=== PATIENT | female | born 1965 | race Caucasian/White ===

== ENCOUNTER 2017-02-09 15:47 | Emergency (ER) | payer MEDICARE, MEDICAID ==
[~2017-02-09] VITALS: Ht 157.5 cm; Wt 110.0 kg
[2017-02-09] MEDS ORDERED: SODIUM CHLORIDE 0.9% 1,000 ML IV ONE (17:39)
[2017-02-09 18:12] LABS: HEMATOCRIT. 27.5 % (36.0-48.0); HEMOGLOBIN. 8.8 g/dL (12.0-16.0); MEAN CORPUSCULAR HGB CONC 31.8 g/dL (31.0-37.0); RED BLOOD CELL COUNT 3.13 mill/uL (4.2-5.4); RED CELL DISTRIBUTION WIDTH 16.4 % (11.6-14.6)
[2017-02-09 18:26] LABS: CHLORIDE 111 mEq/L (98-107); INDEX HEMOLYSI 1 (1-3); INDEX ICTERIC 1 (1-4); INDEX LIPEMIC 1 (1-3)
[2017-02-09 18:27] LABS: DIFFERENTIAL COMMENT 1; WHITE BLOOD COUNT 1.8 x1000/uL (4.5-11.0)
[2017-02-09 18:30] LABS: INR 1.3; PARTIAL THROMBOPLASTIN TIME 31.9 sec (24.0-34.0); PROTHROMBIN TIME 13.2 sec
[2017-02-09 18:34] LABS: ALANINE AMINOTRANSFERASE 24 IU/L (13-61); ALBUMIN 2.8 g/dL (3.4-5.0); ANION GAP 10; CALCIUM 8.3 mg/dL (8.5-10.1); CARBON DIOXIDE 27 mEq/L (21-32); UREA NITROGEN BLOOD 20 mg/dL (7-21); eGFR > 60 mL/min (>60)
[2017-02-09 19:13] LABS: ATYPICAL LYMPHOCYTES 1; NUCLEATED RED BLOOD CELLS 1 /100 WBC
[2017-02-09 19:14] LABS: ANISOCYTOSIS 1+; PLATELET ESTIMATE MARKEDLY DECREASED
[2017-02-09 19:15] LABS: HYPOCHROMASIA 1+
[2017-02-09 19:16] LABS: MEAN PLATELET VOLUME 10.3 fl (7.4-10.4); PLATELET 34 x1000/uL (130-400)
[2017-02-09 21:14] VITALS: BP 140/65
== END 2017-02-09 21:15 | disposition home or self-care (01) ==
LOC: ER 19:30
DX: D61.818 Other pancytopenia (principal); I10 Essential (primary) hypertension
CPT/HCPCS: 36415; 80053; 85025; 85610; 85730; 86850; 86900; 86901; 96360; 99284; J7030

== ENCOUNTER → 2017-05-23 | Outpatient (CLI) | payer MEDICARE, MEDICAID | END | disposition home or self-care (01) | LOC: PVL 11:28 | PROVIDERS: ATTEND Internal Medicine Gastroenterology | DX: I83.93 Asymptomatic varicose veins of bilateral lower extremities (principal); M79.89 Other specified soft tissue disorders; I82.4Z3 Acute embolism and thrombosis of unspecified deep veins of distal lower extremity, bilateral ==

== ENCOUNTER 2018-01-24 08:20 | Day surgery (SDC) | payer MEDICARE, MEDICAID ==
[~2018-01-24] VITALS: Ht 154.9 cm; Wt 117.9 kg
[2018-01-24 09:25] LABS: UCG SCREEN NEGATIVE
[2018-01-24] MEDS ORDERED: SIMETHICONE 40 MG/0.6 ML 30ML ONE (10:39)
[2018-01-24] MEDS ORDERED: MIDAZOLAM HCL 5 MG/5 ML VIAL IV PRN (10:57)
[2018-01-24] MEDS ORDERED: FENTANYL CITRATE/PF 50MCG/ML 2ML VIAL IV PRN (10:58)
[2018-01-24] MEDS ORDERED: FENTANYL CITRATE/PF 50MCG/ML 2ML VIAL ONE (11:02)
[2018-01-24] MEDS ORDERED: MIDAZOLAM HCL 5 MG/5 ML VIAL ONE (11:02)
[2018-01-24] MEDS ORDERED: FURO40TA5 PO (11:20)
[2018-01-24] MEDS ORDERED: METH5TAB2 PO (11:20)
[2018-01-24] MEDS ORDERED: PROP10TA10 GT (11:20)
[2018-01-24] MEDS ORDERED: LACT10SO6 PO (11:20)
[2018-01-24] MEDS ORDERED: PANT40TA4 PO (11:20)
[2018-01-24] MEDS ORDERED: RIFA550T PO (11:20)
[2018-01-24] MEDS ORDERED: SPIR50TA26 PO (11:20)
[2018-01-24 12:59] LABS: HEMATOCRIT 28.9 % (36.0-48.0); HEMOGLOBIN 9.6 g/dL (12.0-16.0); MEAN CORPUSCULAR HEMOGLOBIN 28.4 pg (28.0-32.0); MEAN CORPUSCULAR VOLUME 85.7 fL (81.0-99.0); RED BLOOD CELL COUNT 3.37 mill/uL (4.2-5.4); RED CELL DISTRIBUTION WIDTH 18.8 % (11.6-14.6)
[2018-01-24 13:01] LABS: CHLORIDE 108 mEq/L (98-107)
[2018-01-24 13:07] LABS: AMMONIA 115 uMol/L (<32)
[2018-01-24 13:15] LABS: INR 1.3; PROTHROMBIN TIME 13.1 sec (9.4-11.6)
[2018-01-24] MEDS ORDERED: SODIUM CHLORIDE 0.9% 10ML VIAL ONE (13:51)
[2018-01-25 13:39] LABS: PLATELET 28 x1000/uL (130-400)
== END 2018-01-24 15:10 | disposition home or self-care (01) ==
LOC: OR 08:20
PROVIDERS: ATTEND Internal Medicine Gastroenterology
DX: I85.01 Esophageal varices with bleeding (principal); K70.30 Alcoholic cirrhosis of liver without ascites; K76.6 Portal hypertension; K31.89 Other diseases of stomach and duodenum; B19.20 Unspecified viral hepatitis C without hepatic coma; I10 Essential (primary) hypertension; Z79.899 Other long term (current) drug therapy
CPT/HCPCS: 36415; 43244; 80048; 81025; 82140; 85027; 85610; 85730; 99152; 99153; A4216; J2250; J3010; J7120

== ENCOUNTER → 2022-12-22 | Outpatient (CLI) | payer MEDICARE, MEDICAID ==
[~2022-12-22] MED LIST: FURO40TA5 PO; LACT10SO6 PO; METH-816 PO; PANT40TA51 PO; PROP10TA10 GT; RIFA550T PO; SPIR50TA5 PO
== END | disposition home or self-care (01) ==
LOC: US 09:00
PROVIDERS: ATTEND Internal Medicine Gastroenterology
DX: R16.1 Splenomegaly, not elsewhere classified (principal); I86.8 Varicose veins of other specified sites; K74.60 Unspecified cirrhosis of liver
CPT/HCPCS: 76700